=== PATIENT | male | born 1945 | race Caucasian/White ===

== ENCOUNTER 2023-06-15 11:16 | Inpatient (IN) | payer MEDICARE, BC ==
[~2023-06-15] VITALS: Ht 177.8 cm; Wt 91.9 kg
[2023-06-15] VITALS (13 sets, daily range): BP systolic 96–130; BP diastolic 61–90; PULSE 64–98; TEMP 97.5–98.7
[2023-06-15 11:36] LABS: BASO % 0.3 % (0.0-2.0); EOS # 0.1 K/mm3 (0.0-0.7); EOS % 1.3 % (0.0-4.0); GRAN # 3.5 K/mm3 (1.4-6.5); GRAN % 58.2 % (42.2-75.2); HEMATOCRIT 44.2 % (42.0-52.0); HEMOGLOBIN 14.6 g/dl (13.5-18.0); LYMPH # 1.9 K/mm3 (1.2-3.4); LYMPH % 30.8 % (20.0-51.0); MEAN CELL VOLUME 91 fl (80.0-100.0); MEAN CORPUSCULAR HEMOGLOBIN 30 pg (27-31); MEAN CORPUSCULAR HGB CONC 33 g/dl (33.0-37.0); MEAN PLATELET VOLUME 9.9 fl (7.4-10.4); MONO # 0.6 K/mm3 (0.1-0.6); MONO % 9.1 % (1.7-9.3); PLATELET COUNT 250 K/mm3 (130-400); RED BLOOD COUNT 4.86 M/mm3 (4.20-5.60)
[2023-06-15] MEDS ORDERED: NS 1,000 ML IV ONE (11:45)
[2023-06-15] MEDS ORDERED: dilTIAZem 25 MG/5 ML VIAL IV ONE (11:45)
[2023-06-15 11:51] LABS: INR 1.1 (0.8-3.0); PROTHROMBIN TIME 11.8 SECONDS (9.7-12.8)
[2023-06-15 11:56] LABS: ALANINE AMINOTRANSFERASE 23 U/L (0-55); ALBUMIN 4.2 gm/dL (3.4-4.8); ALKALINE PHOSPHATASE 69 U/L (40-150); ANION GAP 11 mmol/L (7-16); AST,SGOT 18 U/L (5-34); BILIRUBIN,TOTAL 0.5 mg/dL (0.2-1.2); BLOOD UREA NITROGEN 11 mg/dL (8-26); CALCIUM 9.5 mg/dL (8.4-10.2); CARBON DIOXIDE 19 mmol/L (23-31); CHLORIDE 109 mmol/L (98-107); CREATININE, serum 0.85 mg/dL (0.72-1.25); GLUCOSE 97 mg/dL (70-99); POTASSIUM 4.4 mmol/L (3.5-4.5); SODIUM 139 mmol/L (136-145); TOTAL PROTEIN 7.1 gm/dL (6.2-8.1)
[2023-06-15 12:29] LABS: TROPONIN-I < 0.010 ng/mL (0.00-0.033)
[2023-06-15] MEDS ORDERED: NS 1,000 ML IV SCH (12:30)
[2023-06-15] MEDS ORDERED: AMBIEN 5MG TABLE5 MG PO (12:35)
[2023-06-15] MEDS ORDERED: CARDURA 8MG TAB8 MG PO (12:35)
[2023-06-15] MEDS ORDERED: WELLBUTRIN SR150 M1 PO (12:36)
[2023-06-15] MEDS ORDERED: MELATIN 3 MG-11 TAB PO (12:38)
[2023-06-15] MEDS ORDERED: PRILOSEC 20MG20 MG PO (12:38)
[2023-06-15] MEDS ORDERED: TYLENOL 500MG500 MG PO (12:39)
[2023-06-15] MEDS ORDERED: Apixaban 5 MG TAB PO ONE (12:45)
[2023-06-15 12:53] LABS: MAGNESIUM 2.3 mg/dL (1.6-2.6)
[2023-06-15 13:14] LABS: TSH w REFLEX 2.887 uIU/mL (0.350-4.940)
[2023-06-15] MEDS ORDERED: Heparin 5,000 UNITS/ML 1 ML VIAL IV ONE (13:30)
[2023-06-15] MEDS ORDERED: Heparin/D5W 250 ML IV SCH (13:30)
[2023-06-15] MEDS ORDERED: Acetaminophen 500 MG TAB PO PRN (13:30)
[2023-06-15] MEDS ORDERED: Heparin 5,000 UNITS/ML 1 ML VIAL IV PRN (13:30)
[2023-06-15] MEDS ORDERED: Ondansetron 4 MG/2 ML VIAL IV PRN (13:30)
[2023-06-15 13:50] LABS: PARTIAL THROMBOPLASTIN TIME 32.1 SECONDS (26.0-37.0)
[2023-06-15] MEDS ORDERED: Melatonin 3 MG TAB PO PRN (14:15)
--- NOTE | 2023-06-15 15:35 | NUR ---
Patient admitted to medical unit from ED, patient awake, alert and oriented. States chest pain has improved, currently just mild chest "tenderness". Denies shortness of breath, dizziness, or lightheadedness. Family at the bedside. Assisted to bathroom, steady on feet. Bed in lowest position with call light within reach.
[2023-06-15] MEDS ORDERED: Amiodarone 200 MG TAB PO SCH (15:41)
[2023-06-15] MEDS ORDERED: Hydrocortisone 1% Cream 30 GM TUBE TP PRN (15:45)
--- NOTE | 2023-06-15 16:19 | NUR ---
Bedside report completed with Katie RN, call light within reach, first set of vitals reviewed, telemetry box in place.
[2023-06-15] MEDS ORDERED: Omeprazole 20 MG **** subs to Pantoprazole 40 MG PO SCH (21:00)
[2023-06-15] MEDS ORDERED: Apixaban 5 MG TAB PO SCH (21:00)
--- NOTE | 2023-06-15 21:50 | NUR ---
Patient assessed around 2029. Alert and oriented, and able to make needs known. Denies having pain and discomfort. Peripheral INT to left forearm and right hand. Denies SOB and dyspnea. LS CTA. HRR. Telemetry in place. BSAx4. 1+ edema BLE. Voices no questions, needs, or concerns at this time. In bed with call light within reach.
[2023-06-16 03:37] VITALS: BP 135/71; PULSE 66; TEMP 98.2
[2023-06-16 04:36] VITALS: BP_SYST 135
--- NOTE | 2023-06-16 05:29 | NUR ---
Patient remains in normal sinus rhythm at this time. EKG this morning showed HR 63, sinus rhythm, QTC 442. Voices no questions, needs, or concerns at this time. In bed with call light within reach.
[2023-06-16 07:41] LABS: ANION GAP 9 mmol/L (7-16); BLOOD UREA NITROGEN 13 mg/dL (8-26); CALCIUM 8.9 mg/dL (8.4-10.2); CARBON DIOXIDE 23 mmol/L (23-31); CHLORIDE 109 mmol/L (98-107); CREATININE, serum 0.81 mg/dL (0.72-1.25); GLUCOSE 85 mg/dL (70-99); POTASSIUM 4.2 mmol/L (3.5-4.5); SODIUM 141 mmol/L (136-145)
[2023-06-16 07:56] VITALS: BP 158/83; PULSE 69; TEMP 97.9
[2023-06-16 08:01] LABS: TROPONIN-I < 0.010 ng/mL (0.00-0.033)
[2023-06-16] MEDS ORDERED: ELIQUIS 5MG PO (08:38)
[2023-06-16] MEDS ORDERED: CORDARONE200 MG/TAB PO (08:40)
[2023-06-16 08:47] VITALS: BP_SYST 158
[2023-06-16] MEDS ORDERED: buPROPion SR (12-HR) 150 MG TAB PO SCH (09:00)
--- NOTE | 2023-06-16 10:15 | NUR ---
Initial visit; Patient and his Ludy welcomed Voice Studies Director for a visit about their health issues and Andrez's recovery. Ludy is also a patient of Dr. Nowak. They live at [facility] and are very happy there. Voice Studies Director very much enjoyed visiting with them.
--- NOTE | 2023-06-16 11:01 | NUR ---
housekeeping worker did not complete intake prior to discharge. Pt is from [facility] and SW was informed to set up transportation. SW called [facility] transport and they can pick up attendant patient around 11am. SW informed Madeline at [facility] who confirmed he is from [facility] Discharge Plan: return to [place] at [facility]
--- NOTE | 2023-06-16 11:37 | NUR ---
Patient was provided with discharge infomation, all questions answered. Iv access and telemetry were discontinued.
[2023-06-22] MEDS ORDERED: Amiodarone 200 MG TAB PO SCH (21:00)
[2023-06-30] MEDS ORDERED: Amiodarone 200 MG TAB PO SCH (09:00)
== END 2023-06-16 11:00 | disposition home or self-care (01) | DRG 310 ==
LOC: COL.ER 11:16 → MEDICAL 12:34
PROVIDERS: Nurse Practitioner; Personal Emergency Response Attendant; Physician Assistant; ADMIT Internal Medicine
PROC: 5A2204Z Restoration of Cardiac Rhythm, Single (ICD-10-PCS; principal; 2023-06-15)
DX: I48.91 Unspecified atrial fibrillation (principal); I48.92 Unspecified atrial flutter; F32.A Depression, unspecified; K21.9 Gastro-esophageal reflux disease without esophagitis; G47.00 Insomnia, unspecified; F41.9 Anxiety disorder, unspecified; N40.0 Benign prostatic hyperplasia without lower urinary tract symptoms; Z88.5 Allergy status to narcotic agent; Z87.891 Personal history of nicotine dependence; Z79.899 Other long term (current) drug therapy; Z85.820 Personal history of malignant melanoma of skin; Z90.89 Acquired absence of other organs; Z23 Encounter for immunization
CPT/HCPCS: J7030